=== PATIENT | male | born 1990 | race Caucasian/White ===

== ENCOUNTER 2017-12-01 00:43 | Emergency (ER) | payer SELFPAY ==
[~2017-12-01] VITALS: Ht 167.6 cm; Wt 59.9 kg
[2017-12-01 00:53] VITALS: Ht 167.6 cm; Wt 59.9 kg
[2017-12-01 02:27] VITALS: BP 145/84
== END 2017-12-01 02:27 | disposition other institution (70) ==
LOC: ED 00:43
PROC: 0HQ1XZZ Repair Face Skin, External Approach (ICD-10-PCS; principal; 2017-12-01)
PROC: 3E023NZ Introduction of Analgesics, Hypnotics, Sedatives into Muscle, Percutaneous Approach (ICD-10-PCS; 2017-12-01)
DX: S02.2XXA Fracture of nasal bones, initial encounter for closed fracture (principal); S01.81XA Laceration without foreign body of other part of head, initial encounter; R04.0 Epistaxis; H10.219 Acute toxic conjunctivitis, unspecified eye; Y04.0XXA Assault by unarmed brawl or fight, initial encounter; Y92.9 Unspecified place or not applicable
CPT/HCPCS: J1885; J7030

== ENCOUNTER 2017-12-01 00:43 | Emergency (ER) | payer OTHER | END 2017-12-01 02:27 | disposition other institution (70) | LOC: ED 00:43 | DX: Z02.89 Encounter for other administrative examinations (principal) ==